=== PATIENT | female | born 1995 | race Two or more races ===

== ENCOUNTER 2019-04-12 21:17 | Emergency (ER) | payer OTHER ==
--- NOTE | 2019-04-12 21:28 | EDPHY ---
General Time Seen by Provider: 04/12/19 21:28 Narrative: CLINICAL IMPRESSION: Lumbosacral degenerative disc disease, L5-S1 disc herniation with radiculopathy ASSESSMENT/PLAN: Patient is a 24-year-old female with no significant medical history presents to the emergency department with acute on chronic lumbar back pain which acutely worsened after severe coughing fit. Patient is having difficulty with ambulation on arrival, she is in a moderate amount of distress. Her new physical exam revealed midline lumbar spinal tenderness with bilateral lower extremity weakness with hip flexion. MRI revealed degenerative disc disease of the lumbosacral region as well as annulus fibrosis tear at L5-S1 with disc protrusion; no evidence of cauda equina, epidural compression, epidural abscess or hematoma. Patient improved with Toradol, steroid and narcotic. On repeat exam she was able to ambulate independently and without difficulty, her lower extremity strength improved and I suspect weakness was secondary to pain. She will follow up with [facility] as well as neuro surgery, conservative return precautions discussed. DIFFERENTIAL DX: Back pain including but not limited to muscular pain, herniated disc, spine fracture, intra-abdominal causes and urinary tract infection. ED COURSE: 214: Case discussed with Dr. Sanderson 2255: On repeat examination the patient is much more comfortable appearing, she is resting in bed. Still awaiting MRI. 0005: MRI results with mild degenerative disc disease at L4-L5 and L5-S1 with central disc protrusion and annulus fibrosis tear at L5-S1. Moderate bilateral foraminal stenosis at L5-S1. No significant central stenosis. 0011: Patient is able to ambulate without difficulty and independently. She reports that her pain has significantly improved. CHIEF COMPLAINT: Lumbar back pain HPI: Patient is a 24-year-old female with no significant medical history who presents to the emergency department with acute on chronic lumbar back back pain and lower extremity weakness. Patient reports several years of intermittent back pain related to lifting however has never experienced pain this severe. On Saturday she had a severe coughing episode and had a sudden onset of midline lumbar sharp back pain with radiation into her legs. Since that time the patient has had persistent midline sharp back pain, most of the radiation is down into her right leg. She did have 1 episode of pain traveling up her spine, this has not recurred. She feels that her bilateral lower extremities are weak in general, her pain is causing her to limp. Her pain increases with any sort of movement. She has been taking ibuprofen with very little relief, has not taken anything today for pain. She denies any direct impact or other trauma. She has had no fevers or chills, she denies any chest pain, shortness of breath or abdominal pain. She denies any urinary symptoms to include dysuria, hematuria or frequency. Bowel movements have been regular. She has no history of IV drug use. Patient denies saddle paresthesias, lower extremity numbness, tingling, urinary retention or bowel/bladder incontinence. PMH: Denies Pertinent Past Surgical History: Denies Family History: Not contributory Social History: Denies IV drug use history REVIEW OF SYSTEMS: All other systems negative Constitutional: No fever, no chills, appetite change. Eyes: No discharge, vision change ENT: No sore throat, congestion, ear pain. Cardiovascular: No chest pain, no palpitations. Respiratory: No cough, no shortness of breath. Gastrointestinal: No abdominal pain, no vomiting, diarrhea. Genitourinary: No hematuria, dysuria, flank pain. Musculoskeletal: Midline lumbar back pain, lower extremity weakness. Skin: No rashes, color change. Neurological: No headache, dizziness. PHYSICAL EXAM: General Appearance: Very uncomfortable appearing however not toxic-appearing. HENT: Normocephalic, atraumatic. Bilateral external ears are normal. Bilateral tympanic membranes are normal with pearly urbina reflex. Nares are clear, mucosa is pink. Oropharynx is clear, uvula is midline. There is no tonsillar enlargement or exudate. Poor dentition. Eyes: PERRLA, EOMI. Conjunctiva pink, no pallor or injection Neck: Supple, nontender, no lymphadenopathy, no midline pain, FROM. Back: No step-off, palpable bony abnormality, edema, erythema or ecchymosis of the cervical, thoracic or lumbar spines. Patient has midline lumbar spinal tenderness to palpation. There is no obvious deformity, step-off or bony abnormality. FROM of C-spine. Limited ROM of lumbar spine due to pain. 5/5 and equal strength of the UEs, including shoulder shrug; 4/5 LEs bilaterally. Pulses: 2+ and equal radial, DP and PT pulses bilaterally. Sensation intact and symmetric to light touch from face, UEs and LEs bilaterally. Straight leg raise positive bilaterally. DTRs equal bilaterally. Low/medium concern for Acute Spinal Emergency (ASE) High Sensitivity Neuro Exam (HSNE) Lumbar pain L1: inner thigh sensation- no deficit L2: ADduct thigh (cross legs)- bilateral weakness. L3: Extend knee- no deficit L4: Ankle dorsiflexion- no deficit L5: Great toe extension- no deficit S1: Flex knee- no deficit S3-4: bladder/bowel function- no dysfunction Red flags: MINOR (1 pt each) Alcohol Abuse: no = 0 DM - 0 Renal - 0 Night pain - 1 3rd visit in <= 20 - 0 MAJOR (3 pts each) IVDA - 0 Fever without focus - 0 Recent/current systemic infection - 0 Immunosuppression (physician discretion)- your Recent spinal fracture/spinal procedure (ESR is not a good screen for spinal epidural hematoma) - 0 New bladder/bowel incontinence or retention: 0 Total Red Flag score- 1 Respiratory: There are no retractions, lungs are clear to auscultation. Cardiac: Regular rate and rhythm, no murmurs or gallops. Gastrointestinal: Abdomen is soft, nontender, bowel sounds normal, no masses/ hernia, no rigidity, guarding or focal peritoneal findings. Neurological: Alert and oriented x 3, CN 2-12 grossly intact, normal sensation and strength Skin: Warm, dry, no rashes, no nodules on palpation. Musculoskeletal: Extremities are symmetrical, full range of motion, no tenderness, deformity, swelling, or erythema. Psychiatric: Mood and affect are normal, there is no agitation. MEDICAL DECISION MAKING: Patient was seen independently. Secondary supervising physician at time of evaluation was Dr. Sanderson, he did not evaluate this patient. Diagnosis: Lumbosacral degenerative disc disease, disc herniation L5-S1. Summary: Patient is a 24-year-old female with no significant medical history who presents to the emergency department with acute on chronic lumbar back pain which acutely worsened after severe coughing fit. Patient is afebrile and not toxic appearing, she is in moderate distress on arrival. Physical examination revealed midline lumbar spinal tenderness, bilateral weakness with hip flexion. Secondary to lower extremity weakness and significant pain, proceeded with MRI. MRI revealed degenerative disc disease of the lumbosacral region, annulus fibrosis tear at L5-S1 with disc protrusion, no evidence of cord compression or cauda equina. Physical examination is consistent with L5-S1 herniation with radiculopathy. She was given a single dose of narcotic, steroid and Toradol with a market improvement of her pain and mobility. There were no clinical findings to suggest vertebral osteomyelitis, acute fracture, cauda equina syndrome, epidural abscess/hematoma, epidural compression syndrome, malignancy, transverse myelitis or additional emergent intraabdominal infectious/ obstructive process. She is well established at [facility], she will call to schedule an appointment with her PCP. A neurosurgical referral has also been provided. Conservative return precautions discussed. Independent visualization of images, tracing, or specimens: Yes. Decision to obtain medical records or history from someone other than the patient: No Review / Summarize previous medical records: Yes Discussed patient with another provider: Yes, Dr. Sanderson and Dr. Connor Patient Progress: Stable, discharged. - History Smoking Status: Never smoked - Objective Vital Signs: Initial Vital Signs Temperature (C) 37 C 04/12/19 21:22 Heart Rate 97 04/12/19 21:22 Respiratory Rate 16 04/12/19 21:22 Blood Pressure 126/87 H 04/12/19 21:22 O2 Sat (%) 98 04/12/19 21:22 O2 Delivery Mode Room Air Allergies/Adverse Reactions: No Known Allergies Allergy (Unverified 04/12/19 21:21) Home Medications: Medication Instructions Recorded methylPREDNISolone [Medrol Dose 1 each PO AD #1 ea 04/13/19 Clemente] Medications Given: Discontinued Medications Acetaminophen (Tylenol) 1,000 mg PO EDNOW ONE Stop: 04/12/19 21:31 Last Admin: 04/12/19 21:44 Dose: 1,000 mg Dexamethasone (Decadron Injection) 10 mg IVP EDNOW ONE Stop: 04/12/19 21:38 Last Admin: 04/12/19 21:45 Dose: 10 mg Hydromorphone HCl (Dilaudid) 0.5 mg IVP EDNOW ONE Stop: 04/12/19 21:38 Last Admin: 04/12/19 21:45 Dose: 0.5 mg Sodium Chloride (Ns) 1,000 mls @ 0 mls/hr IV ONCE ONE; Wide Open PRN Reason: Protocol Stop: 04/12/19 21:42 Last Admin: 04/12/19 21:42 Dose: 1,000 mls Ibuprofen (Motrin) 600 mg PO EDNOW ONE Stop: 04/12/19 21:31 Last Admin: 04/12/19 21:44 Dose: 600 mg Miscellaneous Medication (Icy Hot Lidocaine/Menthol 4%/1% Patch) 1 patch TD EDNOW ONE Stop: 04/12/19 21:31 Last Admin: 04/12/19 21:45 Dose: 1 patch Departure - Departure Disposition: Home, Routine, Self-Care Clinical Impression: DDD (degenerative disc disease), lumbosacral, Lumbar disc herniation with radiculopathy Condition: Good Instructions: Lumbar Radiculopathy (ED) Additional Instructions: DISCHARGE INSTRUCTIONS FROM YOUR PROVIDER Thank you for visiting our emergency department today. Please keep in mind that discharge from the emergency department does not mean that there is nothing wrong - it simply means that we have not identified an emergency condition that requires further evaluation or treatment in the hospital. You should always plan to follow up with primary care for re-evaluation of your condition in the next 2-3 days. If you have been referred to a specialist, please call as soon as possible ( today or tomorrow) to schedule your follow up appointment at the appropriate time; you have been given a neurosurgical referral, please call to schedule an appointment. Most back pain improves quickly with rest and anti-inflammatory medicines. The majority of back pain will improve regardless of treatment within 4-6 weeks. Regardless, I recommend you follow up with primary care for recheck as soon as possible. Additional evaluation as an outpatient may be needed, and further therapeutic modalities such as chiropractic or PT may be helpful. Rest. Avoid lifting greater than 10-15 pounds. Avoid twisting or prolonged sitting. Movement and gentle walking is good for your back. Try to walk for 15-10 minutes on an even surface 3 or 4 times a day as tolerated and increase gentle exercise as your back improves. Salonpas topical pain patch, apply as directed. You can purchase this over-the- counter at your local great or pharmacy. Apply ice to your low back during acute pain phase, later a heating pad set to a low setting or hot tub may be helpful to help relax muscles. For pain control: You may take Tylenol, I recommend 500-1000 mg every 6-8 hours as needed. Take with food and a full glass of water. Stop taking if this is upsetting you stomach. Do not exceed 4000 mg in a 24 hr period. You may also take ibuprofen, recommend 400 mg every 6 hr. Take with food and a full glass of water. Stop taking if this upsets your stomach. Do not exceed 2400 mg in a 24 hr period. Do not take for at least 8 hr after your emergency department visit as he received Toradol. Take the Medrol Dosepak as directed. You have been prescribed [place] which is a narcotic. Please do not drive or operate machinery while taking this medication as it may make you drowsy. It may also be habit forming. This medication can also cause constipation, recommend taking 100 mg of Colace twice daily while taking this medication. This medication also contains Tylenol, please do not take other Tylenol containing products with this medication. Schedule a follow-up appointment with your primary care physician in the next 2- 3 days for re-evaluation. You may require further treatment, physical therapy and/or further future testing. Return for increased or unmanageable pain, new injury, new midline back pain, numbness, tingling, weakness of your legs, loss of bowel or bladder control, inability to urinate, burning or pain with urination, blood in the urine, fever , chills, abdominal pain, vomiting, difficulty walking, dizziness, fainting, chest pain, shortness of breath, neck pain, neck stiffness, other site of back pain, calf pain, leg redness or swelling, or for any other new, worsening or worrisome symptoms. People present with illnesses and injuries in different ways, and it is always possible that we have missed something. Again, thank you for choosing our emergency department. We hope that you feel better. Referrals: Vitaliy Ascencio MD [Medical Doctor] - 2-3 days, call for appt. [facility] [[facility]] - 2-3 days without fail Prescriptions: methylPREDNISolone [Medrol Dose Clemente] 1 each PO AD #1 ea
[2019-04-12] MEDS ORDERED: IBUPROFEN 600 MG TAB PO ONE (21:30)
[2019-04-12] MEDS ORDERED: LIDOCAINE 4%/MENTHOL 1% PATCH TD ONE (21:30)
[2019-04-12] MEDS ORDERED: ACETAMINOPHEN 500 MG TAB PO ONE (21:30)
[2019-04-12] MEDS ORDERED: DEXAMETHASONE 10 MG/ML VIAL IVP ONE (21:37)
[2019-04-12] MEDS ORDERED: HYDROmorphONE/DILAUDID 2 MG/ML INJ IVP ONE (21:37)
[2019-04-12] MEDS ORDERED: NS 1,000 ML IV ONE (21:41)
[2019-04-13] MEDS ORDERED: HYDROCOD/APAP 5/325 PREPACK#6 BTL TAKEHOME ONE (00:14)
[2019-04-13 00:37] VITALS: BP 114/76
[2019-04-13] MEDS ORDERED: PATCH REMOVAL 1 EA PATCH TD SCH (21:00)
== END 2019-04-13 00:36 | disposition home or self-care (01) ==
DX: M51.37 Other intervertebral disc degeneration, lumbosacral region (principal); M51.87 Other intervertebral disc disorders, lumbosacral region
CPT/HCPCS: 96374; J1100; J1170